=== PATIENT | female | born 1935 | race Caucasian/White ===

== ENCOUNTER 2020-12-04 09:38 | Outpatient (CLI) | payer MEDICARE, OTHER ==
[2020-12-04 11:41] LABS: CREATININE 1.05 mg/dL (0.55-1.02)
== END 2020-12-04 23:59 | disposition home or self-care (01) ==
LOC: CVU 09:38 → RAD 23:59
PROVIDERS: ATTEND Internal Medicine Cardiovascular Disease
DX: Z01.810 Encounter for preprocedural cardiovascular examination (principal); I65.23 Occlusion and stenosis of bilateral carotid arteries; R06.02 Shortness of breath; J84.10 Pulmonary fibrosis, unspecified; I25.10 Atherosclerotic heart disease of native coronary artery without angina pectoris; M48.54XA Collapsed vertebra, not elsewhere classified, thoracic region, initial encounter for fracture; K43.9 Ventral hernia without obstruction or gangrene
CPT/HCPCS: 36415; 71250; 74176; 82565; 93880

== ENCOUNTER 2020-12-10 12:00 | Inpatient (IN) | payer MEDICARE, OTHER ==
[~2020-12-10] VITALS: Ht 175.3 cm; Wt 124.0 kg
[2020-12-31 06:37] VITALS: BP 134/51
[2020-12-31] MEDS ORDERED: ASCO100018 PO (06:47)
[2020-12-31] MEDS ORDERED: CHOL20008 PO (06:47)
[2020-12-31] MEDS ORDERED: OMEP-110 PO (06:47)
[2020-12-31] MEDS ORDERED: DIAZ10TA4 PO (06:47)
[2020-12-31] MEDS ORDERED: ASPI81TA45 PO (06:47)
[2020-12-31] MEDS ORDERED: LATA7.5D RIGHTEYE (06:47)
[2020-12-31] MEDS ORDERED: ZINC50TA10 PO (06:47)
[2020-12-31] MEDS ORDERED: ONDANSETRON 2MG/ML, 2ML IV PRN (07:00)
[2020-12-31] MEDS ORDERED: PLEASE ENTER ALLERGIES MC SCH (07:00)
[2020-12-31] MEDS: PLEASE ENTER HEIGHT AND WEIGHT MC SCH ×2 (07:00→12:48)
[2020-12-31] MEDS ORDERED: FENTANYL PF 250 MCG/5ML ONE (07:05)
[2020-12-31] MEDS ORDERED: PROTAMINE SULFATE 10 MG/ML, 5ML ONE (07:07)
[2020-12-31] MEDS ORDERED: HEPARIN 1,000 UNITS/ML, 10ML ONE ×2 (07:08)
[2020-12-31] MEDS ORDERED: CEFAZOLIN 1,000 MG ONE (07:15)
[2020-12-31] MEDS ORDERED: DEXAMETHASONE 4 MG/ML, 1ML ONE (07:15)
[2020-12-31 07:18] LABS: BASOPHILS % (AUTO) 1 % (0-1); EOSINOPHILS % (AUTO) 3 % (1-7); LYMPHOCYTES % (AUTO) 15 % (22-44); MEAN CORPUSCULAR HEMOGLOBIN 28.1 pg (27.0-34.8); MEAN CORPUSCULAR HGB CONC 32.9 g/dL (32.4-35.8); MEAN PLATELET VOLUME 7.5 fL (7.4-10.4); MONOCYTES % (AUTO) 10 % (2-9); NEUTROPHILS % (AUTO) 72 % (42-75); PLATELET COUNT 237 x10^3/uL (130-400); RED BLOOD COUNT 4.45 x10^6/uL (3.82-5.3); RED CELL DISTRIBUTION WIDTH 14.4 % (9.6-15.2)
[2020-12-31 07:28] LABS: ALANINE AMINOTRANSFERASE 33 U/L (12-78); ALBUMIN 3.1 g/dL (3.4-5.0); ANION GAP 6 mmol/L (5-15); CHLORIDE 104 mmol/L (98-107); CREATININE 1.03 mg/dL (0.55-1.02)
[2020-12-31 07:30] LABS: ALKALINE PHOSPHATASE 90 U/L (45-117); BILIRUBIN,TOTAL 0.4 mg/dL (0.2-1.0); TOTAL PROTEIN 7.4 g/dL (6.4-8.2)
[2020-12-31] MEDS ORDERED: PROPOFOL 10 MG/ML, 20ML ONE (07:31)
[2020-12-31 07:50] LABS: INTERNATIONAL NORMALIZED RATIO 0.96 (0.93-1.1); PROTHROMBIN TIME 10.3 Seconds (9.6-11.5)
[2020-12-31] MEDS ORDERED: ONDANSETRON 2MG/ML, 2ML ONE (08:26)
[2020-12-31] MEDS ORDERED: PROMETHAZINE 12.5 MG SUPP PR PRN (09:00)
[2020-12-31] MEDS ORDERED: DIAZEPAM 5 MG TABLET PO PRN (09:00)
[2020-12-31] MEDS ORDERED: PROMETHAZINE 25 MG/ML, 1ML IVPush PRN (09:00)
[2020-12-31] MEDS ORDERED: LABETALOL 20 MG/4 ML IVPush PRN (09:00)
[2020-12-31] MEDS ORDERED: FENTANYL PF 100 MCG/2ML IV PRN (09:00)
[2020-12-31] MEDS ORDERED: DIPHENHYDRAMINE 50 MG/ML, 1ML IVPush PRN ×2 (09:00)
[2020-12-31] MEDS ORDERED: ALBUTEROL SULFATE 2.5 MG/3 ML NPPB PRN (09:00)
[2020-12-31] MEDS ORDERED: ONDANSETRON 2MG/ML, 2ML IVPush PRN ×2 (09:00)
[2020-12-31] MEDS ORDERED: hydrALAzine 20 MG/ML, 1ML IV PRN (09:00)
[2020-12-31] MEDS ORDERED: EPHEDRINE 50 MG/ML, 1ML IVPush PRN (09:00)
[2020-12-31] MEDS ORDERED: LABETALOL 5MG/ML, 20ML IV PRN (09:00)
[2020-12-31] MEDS ORDERED: SODIUM CHLORIDE 0.9% 1,000 ML IV ONE (09:00)
[2020-12-31] MEDS ORDERED: hydrALAzine 20 MG/ML, 1ML IVPush PRN (09:00)
[2020-12-31] MEDS ORDERED: MEPERIDINE/PF 25MG/0.5ML IVPush PRN (09:00)
[2020-12-31] MEDS ORDERED: ACETAMINOPHEN 325 MG TABLET PO PRN (09:00)
[2020-12-31] MEDS ORDERED: OXYcodone 5 MG/5 ML ORAL.SOL UDC PO PRN (09:00)
[2020-12-31] MEDS ORDERED: ACETAMINOPHEN 325 MG TABLET ONE (09:24)
[2020-12-31] MEDS: ACETAMINOPHEN 325 MG TABLET PO PRN ×3 (09:30→23:03)
[2020-12-31] MEDS: ASPIRIN 81 MG TABLET EC PO SCH (10:00)
[2020-12-31 14:00] VITALS: BP 129/77
[2020-12-31] MEDS: OMEPRAZOLE 20 MG CAPSULE.DR PO SCH (14:45)
[2020-12-31 19:37] VITALS: BP 135/77
[2020-12-31] MEDS ORDERED: LATANOPROST OPHTH 0.005%, 2.5ML RIGHTEYE SCH (22:30)
[2021-01-01 01:07] VITALS: BP 117/72
[2021-01-01 05:39] LABS: ANION GAP 4 mmol/L (5-15); CALCIUM 9.5 mg/dL (8.5-10.1); CHLORIDE 104 mmol/L (98-107)
[2021-01-01 05:40] LABS: CREATININE 1.17 mg/dL (0.55-1.02)
[2021-01-01 05:44] LABS: BASOPHILS % (AUTO) 0 % (0-1); EOSINOPHILS % (AUTO) 0 % (1-7); LYMPHOCYTES % (AUTO) 12 % (22-44); MEAN CORPUSCULAR HEMOGLOBIN 27.7 pg (27.0-34.8); MEAN CORPUSCULAR HGB CONC 32.3 g/dL (32.4-35.8); MEAN PLATELET VOLUME 7.8 fL (7.4-10.4); MONOCYTES % (AUTO) 8 % (2-9); NEUTROPHILS % (AUTO) 80 % (42-75); PLATELET COUNT 223 x10^3/uL (130-400); RED BLOOD COUNT 4.06 x10^6/uL (3.82-5.3); RED CELL DISTRIBUTION WIDTH 14.7 % (9.6-15.2)
[2021-01-01 07:09] VITALS: BP 115/66
[2021-01-01] MEDS: ACETAMINOPHEN 325 MG TABLET PO PRN (09:56)
[2021-01-01] MEDS: ASPIRIN 81 MG TABLET EC PO SCH (09:56)
[2021-01-01] MEDS: OMEPRAZOLE 20 MG CAPSULE.DR PO SCH (09:56)
[2021-01-01] MEDS ORDERED: ACET325T26 PO (11:30)
== END 2021-01-01 15:13 | disposition home or self-care (01) | DRG 266 ==
LOC: ORIP 12-31 06:13 → 5SO 12-31 10:11
PROVIDERS: ADMIT Internal Medicine Cardiovascular Disease; ATTEND Internal Medicine Cardiovascular Disease
PROC: B3101ZZ Fluoroscopy of Thoracic Aorta using Low Osmolar Contrast (ICD-10-PCS; 2020-12-31)
PROC: B24BZZ4 Ultrasonography of Heart with Aorta, Transesophageal (ICD-10-PCS; 2020-12-31)
PROC: 02RF38Z Replacement of Aortic Valve with Zooplastic Tissue, Percutaneous Approach (ICD-10-PCS; principal; 2020-12-31 07:30)
DX: I35.0 Nonrheumatic aortic (valve) stenosis (principal); Z00.6 Encounter for examination for normal comparison and control in clinical research program; I50.33 Acute on chronic diastolic (congestive) heart failure; Z20.822 Contact with and (suspected) exposure to COVID-19; E78.5 Hyperlipidemia, unspecified; I45.10 Unspecified right bundle-branch block
CPT/HCPCS: 33361; 36415; 80048; 80053; 85025; 85610; 86850; 86900; 86923; 87635; 93005; 93306; 93355; C1760; C1769; C1894; G0378; J0690; J1100; J1644; J2405; J2704; J2720; J3010; Q9967